=== PATIENT | female | born 1975 | race Caucasian/White ===

== ENCOUNTER 2020-06-01 08:14 | Emergency (ER) | payer OTHER ==
[2020-06-01 08:26] VITALS: BP 161/91; PULSE 80; TEMP 98.9; BMI 29.2
--- NOTE | 2020-06-01 08:30 | PDOC ---
History of Present Illness - General Chief Complaint: Injury Stated Complaint: LACERATION Time Seen by Provider: 06/01/20 08:30 History Source: Patient Exam Limitations: Language Barrier - History of Present Illness Initial Comments: 06/01/20 09:11 HPI: This is a 44 y/o female with a PMH of HTN and DM presenting to the ED because of a laceration to her left sub-orbital face one hour prior. She was reaching up to fix a curtain and a 1.5 foot piece of wood (molding) fell and hit her. She denies any head injury, headache, blurry vision, or LOC. She reports that she did not have to extract anything from the wound. She denies any purulent discharge. She is unsure of he last tetanus. ROS: GENERAL/CONSTITUTIONAL: No fever/chills. No weakness. HEAD, EYES, EARS, NOSE AND THROAT: No change in vision, no blurry vision. CARDIOVASCULAR: No chest pain or shortness of breath. RESPIRATORY: No cough, wheezing, or hemoptysis. GASTROINTESTINAL: No nausea, vomiting, diarrhea or constipation. MUSCULOSKELETAL: No joint or muscle swelling or pain. No neck or back pain. SKIN: Cut beneath left eye NEUROLOGIC: No headache, loss of consciousness, or change in strength/sensation. HEMATOLOGIC/LYMPHATIC: No anemia, easy bleeding, or history of blood clots. ALLERGIC/IMMUNOLOGIC: No hives or skin allergy. PMH: HTN, DM PSx: Social Hx: Denies Etoh and tobacco Meds: See nurse note Allergies: KNDA PE: GENERAL: Awake, alert, and fully oriented, in no acute distress. Colombian speaking woman sitting in vertical with her son. Conversing normally. HEAD: .5cm sub orbital left sided laceration with flap. EYES: PERRLA, EOMI with no tenderness, conjunctiva clear. NECK: Normal ROM, supple, no lymphadenopathy, JVD, or masses LUNGS: Breath sounds equal, clear to auscultation bilaterally. No wheezes, and no crackles HEART: Regular rate and rhythm, normal S1 and S2, no murmurs, rubs or gallops ABDOMEN: Soft, nontender, normoactive bowel sounds. No guarding, no rebound. No masses EXTREMITIES: Normal range of motion, no edema. No clubbing or cyanosis. No cords, erythema, or tenderness NEUROLOGICAL: Cranial nerves II through XII grossly intact. Normal speech, normal gait. No focal neurological deficits. SKIN: Warm, Dry, normal turgor. 5cm sub orbital left sided flap laceration. MDM: 06/01/20 10:26 This is a 44 y/o female with a PMH of HTN and DM presenting to the ED because of a laceration to her left sub-orbital face one hour prior. - Doesnt sound like traumatic mechanism, no LOC, wood only hit her below the eye - XRAY to r/o foreign body - boostrix - irrigation and lac repair - XRAY with no foreign body - Lac repaired with 3 6.0 sutures. - Wound care and return precautions explained Past History - Medical History Allergies/Adverse Reactions: Allergies Allergy/AdvReac Type Severity Reaction Status Date / Time No Known Allergies Allergy Verified 06/01/20 08:25 COPD: No Diabetes: Yes HTN: Yes - Reproductive History Is Patient Now?: No - Immunization History Immunization Up to Date: No - Psycho-Social/Smoking History Smoking History: Never smoked Have you smoked in the past 12 months: No Information on smoking cessation initiated: No - Substance Abuse Hx (Audit-C & DAST Scrn) How often the patient has a drink containing alcohol: Never Score: In Men: 4 or > Positive; In Women: 3 or > Positive: 0 Screen Result (Pos requires Nsg. Audit-10AR): Negative In the last yr the pt used illegal drug/Rx for NonMed reason: No Score: Yes response is considered Positive: 0 Screen Result (Positive result requires Nsg. DAST-10): Negative *Physical Exam - Vital Signs Last Vital Signs Temp Pulse Resp BP Pulse Ox 98.9 F 80 16 161/91 97 06/01/20 08:18 06/01/20 08:18 06/01/20 08:18 06/01/20 08:18 06/01/20 08:18 Procedures - Laceration/Wound Repair Left Upper Face Wound Length: to 2.5 cm Wound Explored: clean, no foreign body present Wound's Depth, Shape: flap Irrigated w/ Saline: Yes Betadine Prep: No Anesthesia: 1% Lidocaine Amount of Anesthetic (ccs): 2 Wound Debrided: minimal Wound Repaired With: Sutures Suture Size/Type: 6:0 Number of Sutures: 3 Layer Closure: No Sterile Dressing Applied: Yes Discharge - Discharge Information Problems reviewed: Yes Clinical Impression/Diagnosis: Laceration of face Qualifiers: Encounter type: initial encounter Qualified Code(s): S01.81XA - Laceration without foreign body of other part of head, initial encounter Condition: Improved Disposition: HOME - Admission No - Follow up/Referral - Patient Discharge Instructions Patient Printed Discharge Instructions: DI for Laceration Repair Additional Instructions: Discharge Instructions: You were seen in the emergency department with a laceration to your left cheek. The laceration was repaired with 3 stitches. Home Care: - You should avoid getting the wound wet for at least 24 hours. After 24hrs, you may wash your face and shower normally. It is OK to use a plain soap and allow water to run over the wound. Do not scrub at the wound, and pat dry after washing. Do not rub with a towel. - After 24hrs you may remove the bandage and leave the wound open to air. - Do not apply any lotions, ointments, creams or other topical medications to the wound - Some redness and swelling is expected after an injury. You may see a small amount of bleeding or pinkish drainage on the bandage when you remove it. This is normal. - You may use acetaminophen (Tylenol) or ibuprofen (Advil, Motrin) as needed for pain. Please follow the directions on the bottle for dosing information. Follow Up: - You will need to be seen in 5 days for suture removal. You can return to the emergency room or see your regular doctor. - Seek immediate medical care if your wound becomes significantly more painful, swollen, red, you have a large amount of thick drainage, you have fevers to 101F or higher, or you have red streaking from the wound. Print Language: ITALIAN - Post Discharge Activity
[2020-06-01] MEDS ORDERED: DIPHTH,PERTUSS(ACELL),TET 0.5 ML DISP.SYRIN IM ONE ×2 (09:09→09:17)
--- NOTE | 2020-06-01 10:31 | PDOC ---
Documentation entered by Nisa Myers SCRIBE, acting as scribe for Karina Rizvi MD. Karina Rizvi MD: This documentation has been prepared by the albertaeLouis Ana, SCRIBE, under my direction and personally reviewed by me in its entirety. I confirm that the documentation accurately reflects all work, treatment, procedures, and medical decision making performed by me. Attending Attestation - Resident Resident Name: TomasMilvia - ED Attending Attestation I have performed the following: I have examined & evaluated the patient, The case was reviewed & discussed with the resident, I agree w/resident's findings & plan, Exceptions are as noted - HPI HPI: 06/01/20 09:20 Patient is a 44 year old female with a significant past medical history of hypertension and diabetes who presents to the ED with a facial laceration x1 hour. Patient stated she was fixing her curtains and a piece of molding wood fell and hit her face just below her left eye. Patient disclosed she did not have to extract any piece of wood from her lacteration. Patient denies: headache, head trauma, LOC, any vision changes, purulent discharge, or any other related symptoms. Allergies: NKDA - Physicial Exam PE: 06/01/20 10:28 Patient eloped from the ED prior to my exam. 06/01/20 10:28 - Medical Decision Making 06/01/20 10:28 Pt presents to the ED complaining of small laceration to the face. No infraorbital tenderness as per resident exam. No visual complaints. Laceration repaired in the ED. Resident eloped from the ED prior to my exam. Discharge - Discharge Information Problems reviewed: Yes Clinical Impression/Diagnosis: Laceration of face Qualifiers: Encounter type: initial encounter Qualified Code(s): S01.81XA - Laceration without foreign body of other part of head, initial encounter Condition: Improved Disposition: HOME - Follow up/Referral - Patient Discharge Instructions Patient Printed Discharge Instructions: DI for Laceration Repair Additional Instructions: Discharge Instructions: You were seen in the emergency department with a laceration to your left cheek. The laceration was repaired with 3 stitches. Home Care: - You should avoid getting the wound wet for at least 24 hours. After 24hrs, you may wash your face and shower normally. It is OK to use a plain soap and allow water to run over the wound. Do not scrub at the wound, and pat dry after washing. Do not rub with a towel. - After 24hrs you may remove the bandage and leave the wound open to air. - Do not apply any lotions, ointments, creams or other topical medications to the wound - Some redness and swelling is expected after an injury. You may see a small amount of bleeding or pinkish drainage on the bandage when you remove it. This is normal. - You may use acetaminophen (Tylenol) or ibuprofen (Advil, Motrin) as needed for pain. Please follow the directions on the bottle for dosing information. Follow Up: - You will need to be seen in 5 days for suture removal. You can return to the emergency room or see your regular doctor. - Seek immediate medical care if your wound becomes significantly more painful, swollen, red, you have a large amount of thick drainage, you have fevers to 101F or higher, or you have red streaking from the wound. Print Language: CUBAN - Post Discharge Activity
== END 2020-06-01 11:13 | disposition home or self-care (01) ==
LOC: JER 08:14
PROC: 0JQ10ZZ Repair Face Subcutaneous Tissue and Fascia, Open Approach (ICD-10-PCS; principal; 2020-06-01)
PROC: 3E0234Z Introduction of Serum, Toxoid and Vaccine into Muscle, Percutaneous Approach (ICD-10-PCS; 2020-06-01)
DX: S01.81XA Laceration without foreign body of other part of head, initial encounter (principal)
CPT/HCPCS: 70200-TC-FY; 90715; 99284-25